=== PATIENT | female | born 1985 | race Caucasian/White ===

== ENCOUNTER 2021-11-20 20:42 | Emergency (ER) | payer OTHER, MEDICAID, SELFPAY ==
[~2021-11-20] VITALS: Ht 167.6 cm; Wt 59.0 kg
[2021-11-20 20:53] VITALS: BP_SYST 128
--- NOTE | 2021-11-20 20:58 | NUR ---
Patient to ER bed 02 to gown for evaluation. Side rails up. Report given to GLADYS HOYOS
--- NOTE | 2021-11-20 21:00 | NUR ---
Note undone in EDM - 11/20/21 at 2202 by [email or web address] Pt BIB ambulance due to N&V since 3pm today. Pt reports feeling like the room is spinning and c/o being sensitive to light. Denies any medical history. Breathing adequately on RA. No acute signs of distress.
--- NOTE | 2021-11-20 21:00 | NUR ---
Pt BIB ambulance due to c/o N&V since 3 pm today. Pt reports feeling dizzy and being sensitive to light. Denies any medical hx other than previous ear infections in the past. Appears in no acute distress. Breathing adequately on RA.
[2021-11-20] MEDS ORDERED: MECLIZINE HCL 25 MG TABLET (ANITVERT) PO ONE (21:15)
[2021-11-20] MEDS ORDERED: NACL 0.9% 1,000 ML IV ONE (21:15)
[2021-11-20] MEDS ORDERED: ONDANSETRON HCL 4 MG/2 ML VIAL IVP ONE (21:15)
[2021-11-20] MEDS ORDERED: MECL-129 PO (21:31)
[2021-11-20 21:36] LABS: BASOPHILS % (AUTO) 0.2 % (0.0-2.0); EOSINOPHILS % (AUTO) 0.1 % (0.0-4.0); HEMATOCRIT 42.5 % (36-48); HEMOGLOBIN 14.4 g/dL (12.0-16.0); LYMPHOCYTES # (AUTO) 0.7 K/uL (1.0-5.5); LYMPHOCYTES % (AUTO) 5.8 % (20.5-51.5); MEAN CORPUSCULAR HEMOGLOBIN 29 pg (27-31); MEAN CORPUSCULAR HGB CONC 34 % (32-36); MEAN CORPUSCULAR VOLUME 85 fL (79.0-98.0); MONOCYTES # (AUTO) 0.2 K/uL (0.0-1.0); MONOCYTES % (AUTO) 1.4 % (1.7-9.3); NEUTROPHILS # (AUTO) 10.9 K/uL (1.8-7.7); NEUTROPHILS % (AUTO) 92.5 % (40.0-70.0); PLATELET COUNT (AUTO) 300 K/uL (130-430); RED CELL DISTRIBUTION WIDTH 13.9 % (9.0-15.0); WHITE BLOOD COUNT (AUTO) 11.8 K/uL (4.8-10.8)
[2021-11-20 21:55] LABS: CALCIUM 9.2 mg/dL (8.4-11.0); CREATININE 0.64 mg/dL (0.55-1.30); POTASSIUM 3.8 mmol/L (3.5-5.1)
--- NOTE | 2021-11-20 22:04 | NUR ---
Taken to RAD for CT imaging
[2021-11-20 22:08] LABS: ALBUMIN 4.3 g/dL (3.4-4.8); TOTAL BILIRUBIN 0.2 mg/dL (0.0-1.0)
--- NOTE | 2021-11-21 01:32 | NUR ---
Walking test performed on patient. Pt stated room would start to spin if she was not focusing on one object. When asked to stand, pt stated she was nauseous and wanted to vomit.
--- NOTE | 2021-11-21 03:49 | NUR ---
Called in report to [facility] ED and report given to charge nurse. Pt is aware and agrees to be transferred for continuation of care. ETA 04:15 via BLS ambulance. Pt diagnosis: Persistent vertigo. Pt resting in bed at this time. No acute signs of distress.
[2021-11-21 04:23] VITALS: BP_SYST 120
--- NOTE | 2021-11-21 04:25 | NUR ---
S transportation arrived for pt. All belongings sent with pt. Pt left ED in stable condition via gurney.
== END 2021-11-21 04:23 | disposition short-term general hospital (02) ==
LOC: SED 20:42
DX: H81.12 Benign paroxysmal vertigo, left ear (principal); Z79.899 Other long term (current) drug therapy; Z20.822 Contact with and (suspected) exposure to COVID-19
CPT/HCPCS: 36415; 70450; 76376; 80053; 81025; 85025; 87426; 96361; 96374; 99285; J2405; J7030; J8597